=== PATIENT | female | born 1950 | race Caucasian/White ===

== ENCOUNTER 2017-12-10 14:18 | Inpatient (IN) | payer MEDICARE, MEDICAID ==
[~2017-12-10] VITALS: Ht 157.5 cm; Wt 90.9 kg
[~2017-12-10 14:18] MED LIST: ATEN-169 PO; DIPH25CA83 PO; HALO5TAB PO; HYDR-3965 PO; HYDR12.55 PO; LISI-600 PO; LORA2TAB96 PO; ONDA4TAB6 PO; PHEN100C4 PO; Ziprasidone IM; oxyCODONE PO
[2017-12-10 15:37] LABS: BASOPHILS % (AUTO) 0.7 % (0-1); EOSINOPHILS # (AUTO) 0.1 X10'3 (0-0.9); EOSINOPHILS % (AUTO) 1.2 % (0-6); HEMATOCRIT 29.9 % (35.0-45.0); HEMOGLOBIN 10.6 g/dl (12.0-16.0); LYMPHOCYTES # (AUTO) 1.1 X10'3 (1.1-4.8); LYMPHOCYTES % (AUTO) 25.4 % (21-51); MEAN CORPUSCULAR HEMOGLOBIN 37.4 PG (27.0-31.0); MEAN CORPUSCULAR HGB CONC 35.5 % (33.0-36.5); MEAN CORPUSCULAR VOLUME 105.5 FL (78-98); MEAN PLATELET VOLUME 6.9 FL (7.4-10.4); MONOCYTES # (AUTO) 0.4 X10'3 (0-0.9); MONOCYTES % (AUTO) 9.9 % (2-12); NEUTROPHILS # (AUTO) 2.8 X10'3 (1.8-7.7); NEUTROPHILS % (AUTO) 62.8 % (42-75); PLATELET COUNT 136 X10'3 (140-440); RED BLOOD COUNT 2.83 X10'6 (4.20-5.60); RED CELL DISTRIBUTION WIDTH 15.1 % (11.5-14.5); WHITE BLOOD COUNT 4.4 X10'3 (4.5-11.0)
[2017-12-10] MEDS ORDERED: HYDROcodone/acetaminophen 10/325mg tab PO ONE (15:45)
[2017-12-10 15:47] LABS: ALANINE AMINOTRANSFERASE 45 U/L (12-78); ALBUMIN 3.5 G/DL (3.4-5.0); ALBUMIN/GLOBULIN RATIO 1.1 (1.1-1.5); ALKALINE PHOSPHATASE 116 IU/L (46-116); ANION GAP 19 (8-16); ASPARTATE AMINO TRANSFERASE 111 U/L (10-37); BILIRUBIN,TOTAL 1.1 MG/DL (0.1-1.0); BLOOD UREA NITROGEN 38 MG/DL (7-18); BUN/CREATININE RATIO 32.2 (6.6-38.0); CALCIUM 8.3 MG/DL (8.5-10.1); CHLORIDE 89 MMOL/L (99-107); CREATININE 1.18 MG/DL (0.40-0.90); ETHANOL 0.183 GM/DL (0.0-0.010); GLUCOSE 88 MG/DL (70-104); SODIUM 128 MMOL/L (135-145); TOTAL CARBON DIOXIDE 19.8 MMOL/L (24-32); TOTAL PROTEIN 6.6 G/DL (6.4-8.2); eGFR 46 ML/MIN
[2017-12-10 16:02] LABS: ANISOCYTOSIS 1+; HYPOCHROMASIA 1+; PLATELET ESTIMATE DECREASED; POLYCHROMASIA 1+; STOMATOCYTES 1+
[2017-12-10] MEDS ORDERED: ondansetron/PF 4mg/2ml inj IV ONE ×2 (16:20→18:40)
[2017-12-10] MEDS ORDERED: normal saline 1000ml 1,000 ML IV ONE ×2 (16:20→16:25)
[2017-12-10] MEDS ORDERED: LORazepam 1 MG tablet PO ONE (16:35)
[2017-12-10] MEDS ORDERED: normal saline 1000ML IV soln IVB ONE (18:40)
[2017-12-10] MEDS ORDERED: HYDROmorphone 1 mg/ml syringe IV ONE (18:40)
[2017-12-10] MEDS ORDERED: HYDROmorphone inj. 0.5 MG/0.5 ML DISP.SYRIN ONE (18:44)
[2017-12-10] MEDS ORDERED: iohexol 300mg/ml 100ml inj. ONE (18:48)
[2017-12-10 20:09] LABS: URINE HCG NEGATIVE (NEG)
[2017-12-10 20:10] LABS: LIPASE 3719 U/L (73-393)
[2017-12-10 20:21] LABS: URINE AMPHETAMINE SCREEN NEGATIVE (Neg); URINE BARBITUATE SCREEN NEGATIVE (Neg); URINE BENZODIAZEPINES SCREEN NEGATIVE (Neg); URINE CANNABINOID SCREEN NEGATIVE (Neg); URINE COCAINE SCREEN NEGATIVE (Neg); URINE METHADONE SCREEN NEGATIVE (Neg); URINE OPIATE SCREEN POSITIVE (Neg); URINE PHENCYCLIDINE SCREEN NEGATIVE (Neg)
[2017-12-10 20:43] LABS: PHENYTOIN (DILANTIN) 6.7 UG/ML (10.0-20.0)
[2017-12-10] MEDS ORDERED: ASPI-1265 PO (20:59)
[2017-12-10] MEDS ORDERED: METF500T4 PO (20:59)
[2017-12-10] MEDS ORDERED: FLUO20CA39 PO (20:59)
[2017-12-10] MEDS ORDERED: phenytoin sod ER 100mg capsule PO ONE (21:00)
[2017-12-10] MEDS ORDERED: PANT20TA3 PO (21:02)
[2017-12-10 21:07] LABS: COLOR,URINE Yellow (Yellow); GLUCOSE, URINE Negative (Neg); KETONES,URINE Trace mg/dl (Neg); LEUKOCYTE ESTERASE ,URINE Moderate (Neg); NITRITES, URINE Negative (Neg); OCCULT BLOOD,URINE Negative (Neg); PROTEIN,URINE Negative (Neg)
[2017-12-10 21:18] LABS: CLARITY,URINE SLIGHTLY CLOUDY (Clear); UA COLLECTION TYPE NON-SPECIFIED
[2017-12-10 21:19] LABS: BACTERIA,URINE FEW /HPF (Neg); RBC,URINE 0-2 /HPF (0-2); SQUAMOUS EPITHELIAL CELL,UR FEW /LPF (FEW); WBC CLUMPS,URINE FEW /HPF (NEGATIVE); WBC,URINE 20-30 /HPF (0-4)
[2017-12-10] MEDS ORDERED: potassium Cl 40MEQ/NS 500ml 500 ML IV PRN ×2 (21:45)
[2017-12-10] MEDS ORDERED: acetaminophen 650mg rectal suppository RC PRN (21:45)
[2017-12-10] MEDS ORDERED: potassium Cl 20 mEq SR tablet PO PRN ×2 (21:45)
[2017-12-10] MEDS ORDERED: metoclopramide 5 mg/ml inj IV PRN (21:45)
[2017-12-10] MEDS ORDERED: glucagon, human recombinant 1mg kit SUBCUT PRN (21:50)
[2017-12-10] MEDS ORDERED: dextrose 50%-water 50ml dispensing syringe IV PRN ×2 (21:50)
[2017-12-10] MEDS ORDERED: insulin Lispro (HumaLOG) vial - multi-dose SQ SCH (21:50)
[2017-12-10] MEDS ORDERED: MESSAGE TO PHARMACY PO ONE (21:50)
[2017-12-10] MEDS ORDERED: dextrose ORAL solution 15 GM/59 ML bottle PO PRN ×2 (21:50)
[2017-12-10] MEDS ORDERED: LORazepam 2 mg/ml vial IV PRN (21:55)
[2017-12-10 22:07] LABS: INR 1.1 INR; PROTHROMBIN TIME 11.3 SECONDS (9.0-12.0)
[2017-12-10 22:14] LABS: CREATINE KINASE 58 U/L (26-192)
[2017-12-10 22:16] LABS: CHOL/HDL RATIO 2.1 (0.00-4.99); CHOLESTEROL 253 MG/DL (0-200); HDL CHOLESTEROL 122 MG/DL (35-60); LDL CHOLESTEROL 70 MG/DL (50-100); TRIGLYCERIDES 44 MG/DL (20-135)
[2017-12-10] MEDS: normal saline 1000ml 1,000 ML IV SCH (22:16)
[2017-12-10 22:21] LABS: HEMOGLOBIN A1C 4.5 % (4.5-6.2)
[2017-12-10] MEDS: pantoprazole 40 MG vial IV SCH (22:27)
[2017-12-10] MEDS: LORazepam 2 mg/ml vial IV PRN (22:52)
[2017-12-10] MEDS: HYDROmorphone inj. 0.5 MG/0.5 ML DISP.SYRIN IV PRN (22:53)
[2017-12-11] MEDS: HYDROmorphone inj. 0.5 MG/0.5 ML DISP.SYRIN IV PRN ×5 (04:00→21:35)
[2017-12-11] MEDS: LORazepam 2 mg/ml vial IV PRN ×6 (04:08→22:43)
[2017-12-11 06:54] LABS: BASOPHILS % (AUTO) 0.3 % (0-1); EOSINOPHILS # (AUTO) 0.1 X10'3 (0-0.9); EOSINOPHILS % (AUTO) 1.9 % (0-6); HEMATOCRIT 25.8 % (35.0-45.0); HEMOGLOBIN 9.2 g/dl (12.0-16.0); LYMPHOCYTES # (AUTO) 0.9 X10'3 (1.1-4.8); LYMPHOCYTES % (AUTO) 26.6 % (21-51); MEAN CORPUSCULAR HGB CONC 35.7 % (33.0-36.5); MEAN CORPUSCULAR VOLUME 106.5 FL (78-98); MEAN PLATELET VOLUME 6.5 FL (7.4-10.4); MONOCYTES # (AUTO) 0.3 X10'3 (0-0.9); MONOCYTES % (AUTO) 9.2 % (2-12); NEUTROPHILS # (AUTO) 2.2 X10'3 (1.8-7.7); PLATELET COUNT 102 X10'3 (140-440); RED BLOOD COUNT 2.42 X10'6 (4.20-5.60); RED CELL DISTRIBUTION WIDTH 15.4 % (11.5-14.5); WHITE BLOOD COUNT 3.5 X10'3 (4.5-11.0)
[2017-12-11 07:18] LABS: ALBUMIN 3.1 G/DL (3.4-5.0); ANION GAP 14 (8-16); BLOOD UREA NITROGEN 29 MG/DL (7-18); BUN/CREATININE RATIO 30.5 (6.6-38.0); CALCIUM 7.2 MG/DL (8.5-10.1); CHLORIDE 99 MMOL/L (99-107); CREATININE 0.95 MG/DL (0.40-0.90); GLUCOSE 76 MG/DL (70-104); MAGNESIUM 1.5 MG/DL (1.5-2.4); PHENYTOIN (DILANTIN) 6.6 UG/ML (10.0-20.0); PHOSPHORUS 2.8 MG/DL (2.3-4.5); POTASSIUM 4.9 MMOL/L (3.5-5.1); SODIUM 135 MMOL/L (135-145); TOTAL CARBON DIOXIDE 22.2 MMOL/L (24-32); eGFR 59 ML/MIN
[2017-12-11] MEDS: K and/or MAG REPLACEMENT MC SCH (08:00)
[2017-12-11] MEDS: ondansetron/PF 4mg/2ml inj IV PRN ×2 (08:20→16:16)
[2017-12-11] MEDS: pantoprazole 40 MG vial IV SCH ×2 (08:20→20:34)
[2017-12-11] MEDS: normal saline 1000ml 1,000 ML IV SCH ×2 (08:21→16:20)
[2017-12-11 11:22] VITALS: BP 109/52
[2017-12-11 19:00] VITALS: BP 97/44
[2017-12-11] MEDS: insulin glargine (Lantus) pen - multi-dose SQ SCH (21:00)
[2017-12-11] MEDS: phenytoin sod ER 100mg capsule PO SCH (21:34)
[2017-12-12] VITALS: BP 105/54
[2017-12-12] MEDS: LORazepam 2 mg/ml vial IV PRN ×6 (00:01→22:58)
[2017-12-12] MEDS: HYDROmorphone inj. 0.5 MG/0.5 ML DISP.SYRIN IV PRN ×5 (01:34→20:54)
[2017-12-12] MEDS: normal saline 1000ml 1,000 ML IV SCH ×3 (02:00→23:03)
[2017-12-12 06:02] LABS: BASOPHILS % (AUTO) 0.3 % (0-1); EOSINOPHILS # (AUTO) 0.1 X10'3 (0-0.9); EOSINOPHILS % (AUTO) 5.5 % (0-6); HEMATOCRIT 23.7 % (35.0-45.0); HEMOGLOBIN 8.4 g/dl (12.0-16.0); LYMPHOCYTES # (AUTO) 0.6 X10'3 (1.1-4.8); LYMPHOCYTES % (AUTO) 21.2 % (21-51); MEAN CORPUSCULAR HEMOGLOBIN 37.7 PG (27.0-31.0); MEAN CORPUSCULAR HGB CONC 35.2 % (33.0-36.5); MEAN CORPUSCULAR VOLUME 107.1 FL (78-98); MEAN PLATELET VOLUME 7.1 FL (7.4-10.4); MONOCYTES # (AUTO) 0.2 X10'3 (0-0.9); MONOCYTES % (AUTO) 8.5 % (2-12); NEUTROPHILS # (AUTO) 1.7 X10'3 (1.8-7.7); NEUTROPHILS % (AUTO) 64.5 % (42-75); PLATELET COUNT 80 X10'3 (140-440); RED BLOOD COUNT 2.22 X10'6 (4.20-5.60); RED CELL DISTRIBUTION WIDTH 15.5 % (11.5-14.5); WHITE BLOOD COUNT 2.7 X10'3 (4.5-11.0)
[2017-12-12 06:30] LABS: ALBUMIN 2.9 G/DL (3.4-5.0); ANION GAP 11 (8-16); BLOOD UREA NITROGEN 15 MG/DL (7-18); BUN/CREATININE RATIO 19.7 (6.6-38.0); CALCIUM 7.2 MG/DL (8.5-10.1); CHLORIDE 102 MMOL/L (99-107); CREATININE 0.76 MG/DL (0.40-0.90); GLUCOSE 89 MG/DL (70-104); MAGNESIUM 1.3 MG/DL (1.5-2.4); POTASSIUM 4.4 MMOL/L (3.5-5.1); SODIUM 137 MMOL/L (135-145); TOTAL CARBON DIOXIDE 23.6 MMOL/L (24-32); eGFR 77 ML/MIN
[2017-12-12 07:32] VITALS: BP 138/81
[2017-12-12] MEDS: K and/or MAG REPLACEMENT MC SCH (08:00)
[2017-12-12] MEDS: pantoprazole 40 MG vial IV SCH ×2 (08:28→20:13)
[2017-12-12] MEDS: phenytoin sod ER 100mg capsule PO SCH ×3 (08:28→20:53)
[2017-12-12 09:56] LABS: TOTAL CELLS COUNTED 100
[2017-12-12 09:57] LABS: ANISOCYTOSIS 1+
[2017-12-12] MEDS: thiamine inj. 100 MG, MVI, adult No.4 with vit. K 10 ML in dextrose 5% water 500ml 489 ML IV SCH ×3 (11:09)
[2017-12-12] MEDS: ondansetron/PF 4mg/2ml inj IV PRN (11:10)
[2017-12-12 11:31] VITALS: BP 124/64
[2017-12-12 12:13] LABS: PLATELET ESTIMATE DECREASED
[2017-12-12] MEDS ORDERED: magnesium 4gm in 100ml NS 100 ML IV PRN (17:05)
[2017-12-12] MEDS ORDERED: magnesium 2GM in 50ml NS 50 ML IV PRN (17:05)
[2017-12-12] MEDS: magnesium Cl slow-release 64mg tablet PO PRN (17:16)
[2017-12-12 18:30] VITALS: BP 139/77
[2017-12-12] MEDS: insulin glargine (Lantus) pen - multi-dose SQ SCH (20:55)
[2017-12-13] VITALS: BP 134/77
[2017-12-13] MEDS: HYDROmorphone inj. 0.5 MG/0.5 ML DISP.SYRIN IV PRN ×6 (01:15→23:40)
[2017-12-13] MEDS: LORazepam 2 mg/ml vial IV PRN ×8 (01:15→23:42)
[2017-12-13 06:01] LABS: ALBUMIN 2.8 G/DL (3.4-5.0); ANION GAP 10 (8-16); BLOOD UREA NITROGEN 7 MG/DL (7-18); BUN/CREATININE RATIO 10.3 (6.6-38.0); CALCIUM 7.7 MG/DL (8.5-10.1); CHLORIDE 102 MMOL/L (99-107); CREATININE 0.68 MG/DL (0.40-0.90); GLUCOSE 81 MG/DL (70-104); MAGNESIUM 1.3 MG/DL (1.5-2.4); PHOSPHORUS 1.7 MG/DL (2.3-4.5); SODIUM 137 MMOL/L (135-145); TOTAL CARBON DIOXIDE 24.8 MMOL/L (24-32); eGFR 87 ML/MIN
[2017-12-13 06:02] LABS: BASOPHILS % (AUTO) 0.3 % (0-1); EOSINOPHILS # (AUTO) 0.2 X10'3 (0-0.9); EOSINOPHILS % (AUTO) 7.1 % (0-6); HEMATOCRIT 24.2 % (35.0-45.0); HEMOGLOBIN 8.5 g/dl (12.0-16.0); LYMPHOCYTES # (AUTO) 0.7 X10'3 (1.1-4.8); LYMPHOCYTES % (AUTO) 25.6 % (21-51); MEAN CORPUSCULAR HEMOGLOBIN 37.6 PG (27.0-31.0); MEAN CORPUSCULAR VOLUME 107.3 FL (78-98); MEAN PLATELET VOLUME 6.6 FL (7.4-10.4); MONOCYTES # (AUTO) 0.2 X10'3 (0-0.9); MONOCYTES % (AUTO) 6.9 % (2-12); NEUTROPHILS # (AUTO) 1.7 X10'3 (1.8-7.7); NEUTROPHILS % (AUTO) 60.1 % (42-75); PLATELET COUNT 99 X10'3 (140-440); RED BLOOD COUNT 2.26 X10'6 (4.20-5.60); RED CELL DISTRIBUTION WIDTH 14.9 % (11.5-14.5); WHITE BLOOD COUNT 2.8 X10'3 (4.5-11.0)
[2017-12-13 07:00] VITALS: BP 126/73
[2017-12-13 07:51] LABS: EOSINOPHILS % (MANUAL) 8 % (0-6); LYMPHOCYTES % (MANUAL) 20 % (21-51); MONOCYTES % (MANUAL) 4 % (2-12); NEUTROPHILS % (MANUAL) 68 % (42-75); PLATELET ESTIMATE DECREASED; TOTAL CELLS COUNTED 100
[2017-12-13 07:52] LABS: STOMATOCYTES 1+
[2017-12-13] MEDS: K and/or MAG REPLACEMENT MC SCH (08:00)
[2017-12-13] MEDS: pantoprazole 40 MG vial IV SCH ×2 (08:50→21:14)
[2017-12-13] MEDS: FLUoxetine 20mg capsule PO SCH (08:51)
[2017-12-13] MEDS: ondansetron/PF 4mg/2ml inj IV PRN (08:51)
[2017-12-13] MEDS: phenytoin sod ER 100mg capsule PO SCH ×3 (08:51→21:14)
[2017-12-13] MEDS: thiamine inj. 100 MG, MVI, adult No.4 with vit. K 10 ML in dextrose 5% water 500ml 489 ML IV SCH ×3 (08:58)
[2017-12-13] MEDS: normal saline 1000ml 1,000 ML IV SCH ×2 (09:43→19:55)
[2017-12-13] MEDS ORDERED: LORazepam 2 mg/ml vial IV ONE (10:05)
[2017-12-13] MEDS ORDERED: LORazepam 2 mg/ml vial IV PRN (10:55)
[2017-12-13 11:12] VITALS: BP 136/71
[2017-12-13 18:40] VITALS: BP 147/80
[2017-12-13] MEDS: insulin glargine (Lantus) pen - multi-dose SQ SCH (21:00)
[2017-12-14] VITALS: BP 141/84
[2017-12-14] MEDS: LORazepam 2 mg/ml vial IV PRN ×4 (01:57→12:41)
[2017-12-14] MEDS: HYDROmorphone inj. 0.5 MG/0.5 ML DISP.SYRIN IV PRN ×3 (04:08→13:29)
[2017-12-14] MEDS: normal saline 1000ml 1,000 ML IV SCH ×2 (04:13→17:56)
[2017-12-14 05:56] LABS: BASOPHILS % (AUTO) 0.4 % (0-1); EOSINOPHILS # (AUTO) 0.2 X10'3 (0-0.9); EOSINOPHILS % (AUTO) 7.4 % (0-6); HEMATOCRIT 24.1 % (35.0-45.0); HEMOGLOBIN 8.6 g/dl (12.0-16.0); LYMPHOCYTES # (AUTO) 0.6 X10'3 (1.1-4.8); LYMPHOCYTES % (AUTO) 17.7 % (21-51); MEAN CORPUSCULAR HEMOGLOBIN 37.8 PG (27.0-31.0); MEAN CORPUSCULAR HGB CONC 35.9 % (33.0-36.5); MEAN CORPUSCULAR VOLUME 105.3 FL (78-98); MONOCYTES # (AUTO) 0.2 X10'3 (0-0.9); MONOCYTES % (AUTO) 7.8 % (2-12); NEUTROPHILS # (AUTO) 2.1 X10'3 (1.8-7.7); NEUTROPHILS % (AUTO) 66.7 % (42-75); PLATELET COUNT 112 X10'3 (140-440); RED BLOOD COUNT 2.29 X10'6 (4.20-5.60); RED CELL DISTRIBUTION WIDTH 14.8 % (11.5-14.5); WHITE BLOOD COUNT 3.2 X10'3 (4.5-11.0)
[2017-12-14 06:27] LABS: ALBUMIN 2.9 G/DL (3.4-5.0); ANION GAP 13 (8-16); BLOOD UREA NITROGEN 5 MG/DL (7-18); BUN/CREATININE RATIO 8.6 (6.6-38.0); CALCIUM 8.2 MG/DL (8.5-10.1); CHLORIDE 100 MMOL/L (99-107); CREATININE 0.58 MG/DL (0.40-0.90); GLUCOSE 83 MG/DL (70-104); MAGNESIUM 2.1 MG/DL (1.5-2.4); PHENYTOIN (DILANTIN) 6.1 UG/ML (10.0-20.0); PHOSPHORUS 2.1 MG/DL (2.3-4.5); POTASSIUM 4.1 MMOL/L (3.5-5.1); SODIUM 136 MMOL/L (135-145); TOTAL CARBON DIOXIDE 22.6 MMOL/L (24-32); eGFR > 90 ML/MIN
[2017-12-14 06:37] LABS: LIPASE 2567 U/L (73-393)
[2017-12-14 07:00] VITALS: BP 135/73
[2017-12-14] MEDS: K and/or MAG REPLACEMENT MC SCH (07:16)
[2017-12-14] MEDS: FLUoxetine 20mg capsule PO SCH (07:25)
[2017-12-14] MEDS: pantoprazole 40 MG vial IV SCH ×2 (07:25→21:42)
[2017-12-14] MEDS: phenytoin sod ER 100mg capsule PO SCH ×3 (07:25→21:42)
[2017-12-14] MEDS: thiamine inj. 100 MG, MVI, adult No.4 with vit. K 10 ML in dextrose 5% water 500ml 489 ML IV SCH ×3 (08:55)
[2017-12-14 11:00] VITALS: BP 146/74
[2017-12-14] MEDS ORDERED: morphine 4 MG/ML inj SYRINge IV PRN (14:20)
[2017-12-14] MEDS: LORazepam 1 MG tablet PO PRN ×2 (16:52→22:03)
[2017-12-14] MEDS: oxyCODONE/APAP 5-325mg tablet PO PRN ×2 (17:55→22:03)
[2017-12-14 20:00] VITALS: BP 138/71
[2017-12-14] MEDS: insulin glargine (Lantus) pen - multi-dose SQ SCH (21:00)
[2017-12-15] VITALS: BP 138/70
[2017-12-15] MEDS: normal saline 1000ml 1,000 ML IV SCH ×3 (01:43→15:11)
[2017-12-15] MEDS: oxyCODONE/APAP 5-325mg tablet PO PRN ×4 (02:23→15:51)
[2017-12-15] MEDS: LORazepam 1 MG tablet PO PRN ×5 (02:24→21:34)
[2017-12-15 05:51] LABS: BASOPHILS % (AUTO) 0.4 % (0-1); EOSINOPHILS # (AUTO) 0.2 X10'3 (0-0.9); EOSINOPHILS % (AUTO) 8.9 % (0-6); HEMOGLOBIN 8.8 g/dl (12.0-16.0); LYMPHOCYTES # (AUTO) 0.6 X10'3 (1.1-4.8); LYMPHOCYTES % (AUTO) 21.5 % (21-51); MEAN CORPUSCULAR HEMOGLOBIN 37.4 PG (27.0-31.0); MEAN CORPUSCULAR HGB CONC 35.3 % (33.0-36.5); MEAN CORPUSCULAR VOLUME 105.8 FL (78-98); MEAN PLATELET VOLUME 6.2 FL (7.4-10.4); MONOCYTES # (AUTO) 0.4 X10'3 (0-0.9); MONOCYTES % (AUTO) 14.6 % (2-12); NEUTROPHILS # (AUTO) 1.4 X10'3 (1.8-7.7); NEUTROPHILS % (AUTO) 54.6 % (42-75); PLATELET COUNT 161 X10'3 (140-440); RED BLOOD COUNT 2.36 X10'6 (4.20-5.60); RED CELL DISTRIBUTION WIDTH 15.3 % (11.5-14.5); WHITE BLOOD COUNT 2.6 X10'3 (4.5-11.0)
[2017-12-15 06:28] LABS: ALBUMIN 2.8 G/DL (3.4-5.0); ANION GAP 8 (8-16); BLOOD UREA NITROGEN 3 MG/DL (7-18); BUN/CREATININE RATIO 3.8 (6.6-38.0); CALCIUM 8.7 MG/DL (8.5-10.1); CHLORIDE 104 MMOL/L (99-107); CREATININE 0.78 MG/DL (0.40-0.90); GLUCOSE 110 MG/DL (70-104); MAGNESIUM 1.4 MG/DL (1.5-2.4); PHOSPHORUS 1.9 MG/DL (2.3-4.5); POTASSIUM 3.7 MMOL/L (3.5-5.1); SODIUM 140 MMOL/L (135-145); TOTAL CARBON DIOXIDE 27.6 MMOL/L (24-32); eGFR 74 ML/MIN
[2017-12-15 07:02] VITALS: BP 164/83
[2017-12-15] MEDS: pantoprazole 40 MG vial IV SCH ×2 (07:29→19:30)
[2017-12-15] MEDS: FLUoxetine 20mg capsule PO SCH (07:29)
[2017-12-15] MEDS: phenytoin sod ER 100mg capsule PO SCH ×3 (07:29→21:30)
[2017-12-15] MEDS: thiamine inj. 100 MG, MVI, adult No.4 with vit. K 10 ML in dextrose 5% water 500ml 489 ML IV SCH ×3 (07:30)
[2017-12-15 07:32] LABS: TOTAL CELLS COUNTED 100
[2017-12-15 07:33] LABS: BANDS% (MANUAL) 3 % (0-10); BASOPHILS % (MANUAL) 1 % (0-1); EOSINOPHILS % (MANUAL) 8 % (0-6); LYMPHOCYTES % (MANUAL) 20 % (21-51); METAMYLEOCYTES% (MANUAL) 1 % (0-0); MONOCYTES % (MANUAL) 8 % (2-12); NEUTROPHILS % (MANUAL) 59 % (42-75); PLATELET ESTIMATE NORMAL
[2017-12-15] MEDS: K and/or MAG REPLACEMENT MC SCH (08:00)
[2017-12-15] MEDS: magnesium Cl slow-release 64mg tablet PO PRN ×2 (09:48→21:41)
[2017-12-15 11:09] VITALS: BP 145/83
[2017-12-15] MEDS: ondansetron/PF 4mg/2ml inj IV PRN (11:48)
[2017-12-15] MEDS: morphine 4 MG/ML inj SYRINge IV PRN ×2 (13:06→19:31)
[2017-12-15 13:52] LABS: LIPASE 1756 U/L (73-393)
[2017-12-15 20:00] VITALS: BP 133/75
[2017-12-15] MEDS: insulin glargine (Lantus) pen - multi-dose SQ SCH (21:00)
[2017-12-15] MEDS ORDERED: magnesium 2GM in 50ml NS 50 ML IV PRN (21:30)
[2017-12-15] MEDS ORDERED: potassium Cl 20 mEq SR tablet PO PRN ×2 (21:30)
[2017-12-15] MEDS ORDERED: magnesium 4gm in 100ml NS 100 ML IV PRN (21:30)
[2017-12-15] MEDS ORDERED: potassium Cl 40MEQ/NS 500ml 500 ML IV PRN ×2 (21:30)
[2017-12-16] VITALS: BP 133/73
[2017-12-16] MEDS: morphine 4 MG/ML inj SYRINge IV PRN ×3 (00:34→19:19)
[2017-12-16] MEDS: oxyCODONE/APAP 5-325mg tablet PO PRN ×5 (01:33→22:08)
[2017-12-16] MEDS: LORazepam 1 MG tablet PO PRN ×5 (01:33→22:07)
[2017-12-16 06:13] LABS: MAGNESIUM 1.2 MG/DL (1.5-2.4); POTASSIUM 3.9 MMOL/L (3.5-5.1)
[2017-12-16 07:30] VITALS: BP 154/88
[2017-12-16] MEDS: normal saline 1000ml 1,000 ML IV SCH ×3 (07:43→19:14)
[2017-12-16] MEDS: thiamine inj. 100 MG, MVI, adult No.4 with vit. K 10 ML in dextrose 5% water 500ml 489 ML IV SCH ×3 (07:45)
[2017-12-16] MEDS: magnesium Cl slow-release 64mg tablet PO PRN ×2 (07:45→22:07)
[2017-12-16] MEDS: FLUoxetine 20mg capsule PO SCH (07:45)
[2017-12-16] MEDS: phenytoin sod ER 100mg capsule PO SCH ×3 (07:45→21:29)
[2017-12-16] MEDS: pantoprazole 40 MG vial IV SCH ×2 (07:45→20:32)
[2017-12-16] MEDS: K and/or MAG REPLACEMENT MC SCH (08:00)
[2017-12-16] MEDS: ondansetron/PF 4mg/2ml inj IV PRN (08:04)
[2017-12-16 11:56] VITALS: BP 146/84
[2017-12-16 12:52] LABS: BASOPHILS % (AUTO) 0.3 % (0-1); EOSINOPHILS # (AUTO) 0.2 X10'3 (0-0.9); EOSINOPHILS % (AUTO) 7.3 % (0-6); HEMATOCRIT 27.7 % (35.0-45.0); HEMOGLOBIN 9.5 g/dl (12.0-16.0); LYMPHOCYTES # (AUTO) 0.6 X10'3 (1.1-4.8); LYMPHOCYTES % (AUTO) 18.8 % (21-51); MEAN CORPUSCULAR HEMOGLOBIN 37.2 PG (27.0-31.0); MEAN CORPUSCULAR HGB CONC 34.2 % (33.0-36.5); MEAN CORPUSCULAR VOLUME 108.8 FL (78-98); MEAN PLATELET VOLUME 5.9 FL (7.4-10.4); MONOCYTES # (AUTO) 0.5 X10'3 (0-0.9); MONOCYTES % (AUTO) 15.1 % (2-12); NEUTROPHILS # (AUTO) 1.9 X10'3 (1.8-7.7); NEUTROPHILS % (AUTO) 58.5 % (42-75); PLATELET COUNT 232 X10'3 (140-440); RED BLOOD COUNT 2.55 X10'6 (4.20-5.60); RED CELL DISTRIBUTION WIDTH 15.8 % (11.5-14.5); WHITE BLOOD COUNT 3.2 X10'3 (4.5-11.0)
[2017-12-16 13:05] LABS: ALANINE AMINOTRANSFERASE 28 U/L (12-78); ALBUMIN 3.3 G/DL (3.4-5.0); ALKALINE PHOSPHATASE 98 IU/L (46-116); ANION GAP 8 (8-16); ASPARTATE AMINO TRANSFERASE 26 U/L (10-37); BILIRUBIN,TOTAL 0.5 MG/DL (0.1-1.0); BLOOD UREA NITROGEN 3 MG/DL (7-18); BUN/CREATININE RATIO 3.2 (6.6-38.0); CALCIUM 9.1 MG/DL (8.5-10.1); CHLORIDE 102 MMOL/L (99-107); CREATININE 0.94 MG/DL (0.40-0.90); GLUCOSE 105 MG/DL (70-104); LIPASE 796 U/L (73-393); POTASSIUM 3.6 MMOL/L (3.5-5.1); SODIUM 139 MMOL/L (135-145); TOTAL CARBON DIOXIDE 29.1 MMOL/L (24-32); TOTAL PROTEIN 6.5 G/DL (6.4-8.2); eGFR 60 ML/MIN
[2017-12-16 19:00] VITALS: BP 157/83
[2017-12-16] MEDS ORDERED: famotidine 20mg tablet PO ONE ×2 (21:00→21:20)
[2017-12-16] MEDS: insulin glargine (Lantus) pen - multi-dose SQ SCH (21:00)
[2017-12-16] MEDS ORDERED: methylPREDNISolone sod succ 125mg/2ml vial IV ONE (21:00)
[2017-12-16] MEDS: diphenhydrAMINE 50 mg/ml inj IV PRN (21:29)
[2017-12-17] VITALS: BP 159/86
[2017-12-17] MEDS: LORazepam 1 MG tablet PO PRN ×5 (03:13→20:11)
[2017-12-17] MEDS: oxyCODONE/APAP 5-325mg tablet PO PRN ×5 (03:13→20:11)
[2017-12-17 05:19] LABS: BASOPHILS % (AUTO) 0.7 % (0-1); EOSINOPHILS % (AUTO) 1.2 % (0-6); HEMATOCRIT 24.9 % (35.0-45.0); HEMOGLOBIN 8.7 g/dl (12.0-16.0); LYMPHOCYTES # (AUTO) 0.3 X10'3 (1.1-4.8); LYMPHOCYTES % (AUTO) 15.7 % (21-51); MEAN CORPUSCULAR HEMOGLOBIN 37.2 PG (27.0-31.0); MEAN CORPUSCULAR HGB CONC 34.9 % (33.0-36.5); MEAN CORPUSCULAR VOLUME 106.6 FL (78-98); MEAN PLATELET VOLUME 6.2 FL (7.4-10.4); MONOCYTES # (AUTO) 0.1 X10'3 (0-0.9); MONOCYTES % (AUTO) 3.9 % (2-12); NEUTROPHILS # (AUTO) 1.4 X10'3 (1.8-7.7); NEUTROPHILS % (AUTO) 78.5 % (42-75); PLATELET COUNT 227 X10'3 (140-440); RED BLOOD COUNT 2.34 X10'6 (4.20-5.60); RED CELL DISTRIBUTION WIDTH 15.1 % (11.5-14.5); WHITE BLOOD COUNT 1.7 X10'3 (4.5-11.0)
[2017-12-17 05:48] LABS: ALANINE AMINOTRANSFERASE 23 U/L (12-78); ALBUMIN 2.9 G/DL (3.4-5.0); ALKALINE PHOSPHATASE 89 IU/L (46-116); ANION GAP 10 (8-16); ASPARTATE AMINO TRANSFERASE 22 U/L (10-37); BILIRUBIN,TOTAL 0.4 MG/DL (0.1-1.0); BLOOD UREA NITROGEN 2 MG/DL (7-18); BUN/CREATININE RATIO 2.7 (6.6-38.0); CALCIUM 8.8 MG/DL (8.5-10.1); CHLORIDE 105 MMOL/L (99-107); CREATININE 0.75 MG/DL (0.40-0.90); GLUCOSE 148 MG/DL (70-104); LIPASE 386 U/L (73-393); MAGNESIUM 1.3 MG/DL (1.5-2.4); POTASSIUM 3.8 MMOL/L (3.5-5.1); SODIUM 141 MMOL/L (135-145); TOTAL CARBON DIOXIDE 25.8 MMOL/L (24-32); TOTAL PROTEIN 5.8 G/DL (6.4-8.2); eGFR 78 ML/MIN
[2017-12-17] MEDS: normal saline 1000ml 1,000 ML IV SCH ×2 (06:37→23:01)
[2017-12-17] MEDS: K and/or MAG REPLACEMENT MC SCH ×2 (07:15→07:16)
[2017-12-17 07:28] VITALS: BP 152/89
[2017-12-17] MEDS: FLUoxetine 20mg capsule PO SCH (07:34)
[2017-12-17] MEDS: pantoprazole 40 MG vial IV SCH ×2 (07:34→20:10)
[2017-12-17] MEDS: phenytoin sod ER 100mg capsule PO SCH ×3 (07:35→20:42)
[2017-12-17] MEDS: thiamine inj. 100 MG, MVI, adult No.4 with vit. K 10 ML in dextrose 5% water 500ml 489 ML IV SCH ×3 (07:35)
[2017-12-17 09:06] LABS: PLATELET ESTIMATE NORMAL; TOTAL CELLS COUNTED 100
[2017-12-17 09:07] LABS: ANISOCYTOSIS 1+; POLYCHROMASIA 1+; SMUDGE CELLS FEW; TARGET CELLS FEW
[2017-12-17] MEDS: magnesium Cl slow-release 64mg tablet PO PRN (11:25)
[2017-12-17 11:40] VITALS: BP 165/85
[2017-12-17] MEDS ORDERED: lisinopril 20mg tablet PO SCH (11:40)
[2017-12-17] MEDS ORDERED: atenolol 50mg tablet PO SCH (11:55)
[2017-12-17] MEDS: aspirin 81mg tab.chew PO SCH (12:11)
[2017-12-17 16:14] VITALS: BP 144/75
[2017-12-17] MEDS: atenolol 50mg tablet PO SCH (16:17)
[2017-12-17 19:00] VITALS: BP 150/73
[2017-12-17] MEDS: insulin glargine (Lantus) pen - multi-dose SQ SCH (21:00)
[2017-12-18] VITALS: BP 138/65
[2017-12-18] MEDS: LORazepam 1 MG tablet PO PRN ×6 (00:16→21:36)
[2017-12-18] MEDS: oxyCODONE/APAP 5-325mg tablet PO PRN ×6 (00:19→21:37)
[2017-12-18 05:31] LABS: BASOPHILS % (AUTO) 0.9 % (0-1); EOSINOPHILS # (AUTO) 0.2 X10'3 (0-0.9); EOSINOPHILS % (AUTO) 6.6 % (0-6); HEMOGLOBIN 8.5 g/dl (12.0-16.0); LYMPHOCYTES # (AUTO) 1.2 X10'3 (1.1-4.8); LYMPHOCYTES % (AUTO) 34.9 % (21-51); MEAN CORPUSCULAR HEMOGLOBIN 37.6 PG (27.0-31.0); MEAN CORPUSCULAR HGB CONC 35.3 % (33.0-36.5); MEAN CORPUSCULAR VOLUME 106.7 FL (78-98); MEAN PLATELET VOLUME 6.1 FL (7.4-10.4); MONOCYTES # (AUTO) 0.5 X10'3 (0-0.9); MONOCYTES % (AUTO) 15.4 % (2-12); NEUTROPHILS # (AUTO) 1.4 X10'3 (1.8-7.7); NEUTROPHILS % (AUTO) 42.2 % (42-75); PLATELET COUNT 251 X10'3 (140-440); RED BLOOD COUNT 2.25 X10'6 (4.20-5.60); RED CELL DISTRIBUTION WIDTH 15.7 % (11.5-14.5); WHITE BLOOD COUNT 3.4 X10'3 (4.5-11.0)
[2017-12-18 06:16] LABS: ALANINE AMINOTRANSFERASE 22 U/L (12-78); ALBUMIN 2.8 G/DL (3.4-5.0); ALKALINE PHOSPHATASE 80 IU/L (46-116); ANION GAP 10 (8-16); ASPARTATE AMINO TRANSFERASE 23 U/L (10-37); BILIRUBIN,TOTAL 0.4 MG/DL (0.1-1.0); BLOOD UREA NITROGEN 3 MG/DL (7-18); CALCIUM 8.7 MG/DL (8.5-10.1); CHLORIDE 108 MMOL/L (99-107); CREATININE 0.75 MG/DL (0.40-0.90); GLUCOSE 99 MG/DL (70-104); LIPASE 385 U/L (73-393); MAGNESIUM 1.3 MG/DL (1.5-2.4); POTASSIUM 3.5 MMOL/L (3.5-5.1); SODIUM 143 MMOL/L (135-145); TOTAL CARBON DIOXIDE 24.8 MMOL/L (24-32); TOTAL PROTEIN 5.5 G/DL (6.4-8.2); eGFR 78 ML/MIN
[2017-12-18] MEDS: atenolol 50mg tablet PO SCH ×2 (06:44→13:48)
[2017-12-18] MEDS: aspirin 81mg tab.chew PO SCH (06:44)
[2017-12-18] MEDS: pantoprazole 40 MG vial IV SCH ×2 (06:44→19:30)
[2017-12-18] MEDS: phenytoin sod ER 100mg capsule PO SCH ×3 (06:50→20:35)
[2017-12-18] MEDS: K and/or MAG REPLACEMENT MC SCH (06:55)
[2017-12-18 07:05] VITALS: BP 157/94
[2017-12-18] MEDS: magnesium Cl slow-release 64mg tablet PO PRN (08:56)
[2017-12-18] MEDS: thiamine inj. 100 MG, MVI, adult No.4 with vit. K 10 ML in dextrose 5% water 500ml 489 ML IV SCH ×3 (09:22)
[2017-12-18] MEDS: normal saline 1000ml 1,000 ML IV SCH ×2 (09:26→19:43)
[2017-12-18 12:00] VITALS: BP 182/91
[2017-12-18] MEDS: lisinopril 20mg tablet PO SCH (12:09)
[2017-12-18 19:00] VITALS: BP 151/84
[2017-12-18] MEDS: diphenhydrAMINE 50 mg/ml inj IV PRN (19:30)
[2017-12-18] MEDS: insulin glargine (Lantus) pen - multi-dose SQ SCH (21:00)
[2017-12-19] VITALS: BP 130/69
[2017-12-19] MEDS: LORazepam 1 MG tablet PO PRN ×5 (02:07→20:55)
[2017-12-19] MEDS: oxyCODONE/APAP 5-325mg tablet PO PRN ×5 (02:08→20:55)
[2017-12-19] MEDS: normal saline 1000ml 1,000 ML IV SCH ×2 (04:14→20:10)
[2017-12-19 05:59] LABS: BASOPHILS % (AUTO) 0.9 % (0-1); EOSINOPHILS # (AUTO) 0.2 X10'3 (0-0.9); EOSINOPHILS % (AUTO) 5.3 % (0-6); HEMATOCRIT 23.9 % (35.0-45.0); HEMOGLOBIN 8.2 g/dl (12.0-16.0); LYMPHOCYTES # (AUTO) 1.1 X10'3 (1.1-4.8); LYMPHOCYTES % (AUTO) 31.9 % (21-51); MEAN CORPUSCULAR HEMOGLOBIN 36.9 PG (27.0-31.0); MEAN CORPUSCULAR HGB CONC 34.1 % (33.0-36.5); MEAN CORPUSCULAR VOLUME 108.1 FL (78-98); MEAN PLATELET VOLUME 6.2 FL (7.4-10.4); MONOCYTES # (AUTO) 0.7 X10'3 (0-0.9); MONOCYTES % (AUTO) 18.7 % (2-12); NEUTROPHILS # (AUTO) 1.5 X10'3 (1.8-7.7); NEUTROPHILS % (AUTO) 43.2 % (42-75); PLATELET COUNT 273 X10'3 (140-440); RED BLOOD COUNT 2.21 X10'6 (4.20-5.60); RED CELL DISTRIBUTION WIDTH 15.5 % (11.5-14.5); WHITE BLOOD COUNT 3.5 X10'3 (4.5-11.0)
[2017-12-19] MEDS: aspirin 81mg tab.chew PO SCH (06:50)
[2017-12-19] MEDS: phenytoin sod ER 100mg capsule PO SCH ×3 (06:51→20:18)
[2017-12-19] MEDS: thiamine inj. 100 MG, MVI, adult No.4 with vit. K 10 ML in dextrose 5% water 500ml 489 ML IV SCH ×3 (06:51)
[2017-12-19] MEDS: pantoprazole 40 MG vial IV SCH ×2 (06:51→20:14)
[2017-12-19] MEDS: lisinopril 20mg tablet PO SCH (06:51)
[2017-12-19] MEDS: atenolol 50mg tablet PO SCH ×2 (06:51→07:55)
[2017-12-19] MEDS: K and/or MAG REPLACEMENT MC SCH (06:52)
[2017-12-19 06:54] LABS: ALANINE AMINOTRANSFERASE 20 U/L (12-78); ALBUMIN 2.8 G/DL (3.4-5.0); ALBUMIN/GLOBULIN RATIO 1.1 (1.1-1.5); ALKALINE PHOSPHATASE 75 IU/L (46-116); ANION GAP 10 (8-16); ASPARTATE AMINO TRANSFERASE 18 U/L (10-37); BILIRUBIN,TOTAL 0.3 MG/DL (0.1-1.0); BLOOD UREA NITROGEN 3 MG/DL (7-18); BUN/CREATININE RATIO 3.6 (6.6-38.0); CALCIUM 8.6 MG/DL (8.5-10.1); CHLORIDE 107 MMOL/L (99-107); CREATININE 0.84 MG/DL (0.40-0.90); GLUCOSE 105 MG/DL (70-104); LIPASE 270 U/L (73-393); MAGNESIUM 1.2 MG/DL (1.5-2.4); POTASSIUM 3.5 MMOL/L (3.5-5.1); SODIUM 142 MMOL/L (135-145); TOTAL CARBON DIOXIDE 24.8 MMOL/L (24-32); TOTAL PROTEIN 5.4 G/DL (6.4-8.2); eGFR 68 ML/MIN
[2017-12-19 07:20] VITALS: BP 165/87
[2017-12-19 08:11] LABS: PLATELET ESTIMATE NORMAL; TOTAL CELLS COUNTED 100
[2017-12-19 08:13] LABS: ANISOCYTOSIS 1+
[2017-12-19] MEDS ORDERED: famotidine 20mg tablet PO ONE (10:25)
[2017-12-19] MEDS ORDERED: sucralfate 1gm/10ml UD suspension PO ONE (10:25)
[2017-12-19 11:43] VITALS: BP 156/86
[2017-12-19 20:00] VITALS: BP 171/94
[2017-12-19] MEDS: diphenhydrAMINE 50 mg/ml inj IV PRN (20:06)
[2017-12-19] MEDS ORDERED: atenolol 50mg tablet PO ONE (20:35)
[2017-12-19] MEDS: insulin glargine (Lantus) pen - multi-dose SQ SCH (20:57)
[2017-12-20] VITALS: BP 142/78
[2017-12-20] MEDS: LORazepam 1 MG tablet PO PRN ×5 (01:08→21:09)
[2017-12-20] MEDS: oxyCODONE/APAP 5-325mg tablet PO PRN ×5 (01:09→21:09)
[2017-12-20] MEDS: normal saline 1000ml 1,000 ML IV SCH ×2 (05:04→11:43)
[2017-12-20 05:52] LABS: BASOPHILS % (AUTO) 1.5 % (0-1); EOSINOPHILS # (AUTO) 0.2 X10'3 (0-0.9); EOSINOPHILS % (AUTO) 5.7 % (0-6); HEMATOCRIT 23.3 % (35.0-45.0); LYMPHOCYTES % (AUTO) 31.1 % (21-51); MEAN CORPUSCULAR HEMOGLOBIN 36.7 PG (27.0-31.0); MEAN CORPUSCULAR HGB CONC 34.2 % (33.0-36.5); MEAN CORPUSCULAR VOLUME 107.2 FL (78-98); MEAN PLATELET VOLUME 6.7 FL (7.4-10.4); MONOCYTES # (AUTO) 0.5 X10'3 (0-0.9); NEUTROPHILS # (AUTO) 1.4 X10'3 (1.8-7.7); NEUTROPHILS % (AUTO) 45.7 % (42-75); PLATELET COUNT 279 X10'3 (140-440); RED BLOOD COUNT 2.17 X10'6 (4.20-5.60); RED CELL DISTRIBUTION WIDTH 15.9 % (11.5-14.5); WHITE BLOOD COUNT 3.1 X10'3 (4.5-11.0)
[2017-12-20 06:23] LABS: ALANINE AMINOTRANSFERASE 27 U/L (12-78); ALBUMIN 2.6 G/DL (3.4-5.0); ALKALINE PHOSPHATASE 66 IU/L (46-116); ANION GAP 7 (8-16); ASPARTATE AMINO TRANSFERASE 31 U/L (10-37); BILIRUBIN,TOTAL 0.4 MG/DL (0.1-1.0); BLOOD UREA NITROGEN 5 MG/DL (7-18); BUN/CREATININE RATIO 5.2 (6.6-38.0); CALCIUM 8.5 MG/DL (8.5-10.1); CHLORIDE 110 MMOL/L (99-107); CREATININE 0.96 MG/DL (0.40-0.90); GLUCOSE 99 MG/DL (70-104); LIPASE 202 U/L (73-393); MAGNESIUM 1.1 MG/DL (1.5-2.4); POTASSIUM 3.6 MMOL/L (3.5-5.1); SODIUM 145 MMOL/L (135-145); TOTAL CARBON DIOXIDE 27.8 MMOL/L (24-32); TOTAL PROTEIN 5.3 G/DL (6.4-8.2); eGFR 58 ML/MIN
[2017-12-20] MEDS: aspirin 81mg tab.chew PO SCH (06:39)
[2017-12-20] MEDS: atenolol 50mg tablet PO SCH ×2 (06:39→07:08)
[2017-12-20 07:00] VITALS: BP 143/72
[2017-12-20] MEDS: pantoprazole 40 MG vial IV SCH ×2 (07:04→21:11)
[2017-12-20] MEDS: lisinopril 20mg tablet PO SCH (07:08)
[2017-12-20] MEDS: phenytoin sod ER 100mg capsule PO SCH ×3 (07:09→21:10)
[2017-12-20] MEDS: K and/or MAG REPLACEMENT MC SCH (07:15)
[2017-12-20] MEDS: thiamine inj. 100 MG, MVI, adult No.4 with vit. K 10 ML in dextrose 5% water 500ml 489 ML IV SCH ×3 (08:54)
[2017-12-20] MEDS ORDERED: NORMAL SALINE IV ONE (09:00)
[2017-12-20] MEDS ORDERED: SINCALIDE IV ONE (09:00)
[2017-12-20 09:59] LABS: INR 1.1 INR
[2017-12-20] MEDS ORDERED: magnesium 2GM in 50ml NS 50 ML IV PRN (10:00)
[2017-12-20] MEDS ORDERED: magnesium 4gm in 100ml NS 100 ML IV PRN (10:00)
[2017-12-20 11:42] VITALS: BP 159/84
[2017-12-20 11:48] VITALS: BP 159/84
[2017-12-20 11:50] VITALS: BP 149/77
[2017-12-20 20:00] VITALS: BP 126/67
[2017-12-20] MEDS: insulin glargine (Lantus) pen - multi-dose SQ SCH (21:00)
[2017-12-20] MEDS: diphenhydrAMINE 50 mg/ml inj IV PRN (21:18)
[2017-12-21] VITALS (28 sets, daily range): BP systolic 104–166; BP diastolic 60–109
[2017-12-21] MEDS: LORazepam 1 MG tablet PO PRN ×5 (01:39→20:30)
[2017-12-21] MEDS: oxyCODONE/APAP 5-325mg tablet PO PRN ×5 (01:39→20:30)
[2017-12-21] MEDS: normal saline 1000ml 1,000 ML IV SCH ×3 (01:40→16:07)
[2017-12-21 04:59] LABS: BASOPHILS % (AUTO) 1.4 % (0-1); EOSINOPHILS # (AUTO) 0.2 X10'3 (0-0.9); HEMATOCRIT 24.7 % (35.0-45.0); HEMOGLOBIN 8.5 g/dl (12.0-16.0); LYMPHOCYTES # (AUTO) 0.9 X10'3 (1.1-4.8); MEAN CORPUSCULAR HEMOGLOBIN 36.9 PG (27.0-31.0); MEAN CORPUSCULAR HGB CONC 34.4 % (33.0-36.5); MEAN CORPUSCULAR VOLUME 107.2 FL (78-98); MEAN PLATELET VOLUME 6.3 FL (7.4-10.4); MONOCYTES # (AUTO) 0.5 X10'3 (0-0.9); MONOCYTES % (AUTO) 14.6 % (2-12); NEUTROPHILS # (AUTO) 1.9 X10'3 (1.8-7.7); PLATELET COUNT 299 X10'3 (140-440); RED CELL DISTRIBUTION WIDTH 15.3 % (11.5-14.5); WHITE BLOOD COUNT 3.6 X10'3 (4.5-11.0)
[2017-12-21 05:16] LABS: PARTIAL THROMBOPLASTIN TIME 23 SECONDS (22-32); PROTHROMBIN TIME 10.5 SECONDS (9.0-12.0)
[2017-12-21 05:31] LABS: ALANINE AMINOTRANSFERASE 32 U/L (12-78); ALBUMIN 2.9 G/DL (3.4-5.0); ALKALINE PHOSPHATASE 83 IU/L (46-116); ANION GAP 8 (8-16); ASPARTATE AMINO TRANSFERASE 42 U/L (10-37); BILIRUBIN,TOTAL 0.3 MG/DL (0.1-1.0); BLOOD UREA NITROGEN 6 MG/DL (7-18); BUN/CREATININE RATIO 6.4 (6.6-38.0); CALCIUM 8.7 MG/DL (8.5-10.1); CHLORIDE 107 MMOL/L (99-107); CREATININE 0.94 MG/DL (0.40-0.90); GLUCOSE 109 MG/DL (70-104); MAGNESIUM 2.1 MG/DL (1.5-2.4); POTASSIUM 3.9 MMOL/L (3.5-5.1); SODIUM 144 MMOL/L (135-145); TOTAL CARBON DIOXIDE 28.8 MMOL/L (24-32); TOTAL PROTEIN 5.7 G/DL (6.4-8.2); eGFR 60 ML/MIN
[2017-12-21] MEDS: K and/or MAG REPLACEMENT MC SCH (07:14)
[2017-12-21] MEDS: multivitamins, therapeutics tablet PO SCH (07:15)
[2017-12-21] MEDS: aspirin 81mg tab.chew PO SCH (07:15)
[2017-12-21] MEDS: lisinopril 20mg tablet PO SCH (07:24)
[2017-12-21] MEDS: pantoprazole 40 MG vial IV SCH ×2 (07:24→20:31)
[2017-12-21] MEDS: phenytoin sod ER 100mg capsule PO SCH ×3 (07:24→20:30)
[2017-12-21] MEDS: atenolol 50mg tablet PO SCH (07:24)
[2017-12-21] MEDS ORDERED: BUPIVAcaine/PF 2.5 mg/ml (0.25%) 30ml vial ONE (12:00)
[2017-12-21] MEDS ORDERED: ceFAZolin 1000mg inj ONE (12:00)
[2017-12-21] MEDS ORDERED: fentaNYL /PF 50mcg/ml 5ml ampule ONE (12:26)
[2017-12-21] MEDS ORDERED: midazolam 2 mg/2 ml injection ONE (12:27)
[2017-12-21] MEDS ORDERED: rocuronium 10mg/ml inj IV ONE (12:29)
[2017-12-21] MEDS ORDERED: propofol inj 20 ML IV ONE (12:29)
[2017-12-21] MEDS ORDERED: LIDOcaine 2% (20mg/ml) 5ml vial ONE (12:29)
[2017-12-21] MEDS ORDERED: sevoflurane 250ml liquid IH ONE (12:30)
[2017-12-21] MEDS ORDERED: ceFOXitin 1000 MG inj ONE ×2 (12:54)
[2017-12-21] MEDS ORDERED: ondansetron/PF 4mg/2ml inj ONE (12:55)
[2017-12-21] MEDS ORDERED: glycopyrrolate 0.2mg/ml inj ONE (13:00)
[2017-12-21] MEDS ORDERED: neostigmine methylsulfate 1 MG/ML 10ml vial ONE (13:00)
[2017-12-21] MEDS ORDERED: ringers solution, lacted 1,000 ML IV ONE (13:17)
[2017-12-21] MEDS ORDERED: hydrALAZINE 20mg/ml inj. IV PRN (13:20)
[2017-12-21] MEDS ORDERED: meperidine/PF 50mg/ml syringe IV ONE (13:20)
[2017-12-21] MEDS ORDERED: ondansetron/PF 4mg/2ml inj IV PRN (13:20)
[2017-12-21] MEDS ORDERED: morphine 4 MG/ML inj SYRINge IV PRN ×2 (13:20)
[2017-12-21] MEDS ORDERED: meperidine/PF 50mg/ml syringe IV PRN (13:20)
[2017-12-21] MEDS: meperidine/PF 50mg/ml syringe IV PRN ×5 (13:24→15:13)
[2017-12-21] MEDS: labetalol 20mg/4ml (5mg/ml) syringe IV PRN ×2 (13:24→13:33)
[2017-12-21] MEDS ORDERED: morphine 4 MG/ML inj SYRINge IV ONE ×3 (17:25→22:15)
[2017-12-21] MEDS: insulin glargine (Lantus) pen - multi-dose SQ SCH (21:00)
[2017-12-22] VITALS (9 sets, daily range): BP systolic 96–150; BP diastolic 50–73
[2017-12-22] MEDS: oxyCODONE/APAP 5-325mg tablet PO PRN ×3 (00:44→08:57)
[2017-12-22] MEDS: LORazepam 1 MG tablet PO PRN ×5 (00:45→22:49)
[2017-12-22] MEDS: normal saline 1000ml 1,000 ML IV SCH ×3 (03:09→23:38)
[2017-12-22 05:25] LABS: BASOPHILS % (AUTO) 0.3 % (0-1); EOSINOPHILS # (AUTO) 0.1 X10'3 (0-0.9); EOSINOPHILS % (AUTO) 1.7 % (0-6); HEMATOCRIT 22.6 % (35.0-45.0); HEMOGLOBIN 7.7 g/dl (12.0-16.0); LYMPHOCYTES # (AUTO) 0.8 X10'3 (1.1-4.8); LYMPHOCYTES % (AUTO) 13.1 % (21-51); MEAN CORPUSCULAR HEMOGLOBIN 36.4 PG (27.0-31.0); MEAN CORPUSCULAR HGB CONC 33.9 % (33.0-36.5); MEAN CORPUSCULAR VOLUME 107.2 FL (78-98); MEAN PLATELET VOLUME 6.7 FL (7.4-10.4); MONOCYTES # (AUTO) 0.4 X10'3 (0-0.9); MONOCYTES % (AUTO) 7.7 % (2-12); NEUTROPHILS # (AUTO) 4.5 X10'3 (1.8-7.7); NEUTROPHILS % (AUTO) 77.2 % (42-75); PLATELET COUNT 251 X10'3 (140-440); RED BLOOD COUNT 2.11 X10'6 (4.20-5.60); RED CELL DISTRIBUTION WIDTH 15.1 % (11.5-14.5); WHITE BLOOD COUNT 5.8 X10'3 (4.5-11.0)
[2017-12-22 06:01] LABS: ALANINE AMINOTRANSFERASE 44 U/L (12-78); ALBUMIN 2.5 G/DL (3.4-5.0); ALBUMIN/GLOBULIN RATIO 0.9 (1.1-1.5); ALKALINE PHOSPHATASE 82 IU/L (46-116); ANION GAP 9 (8-16); ASPARTATE AMINO TRANSFERASE 91 U/L (10-37); BILIRUBIN,TOTAL 0.5 MG/DL (0.1-1.0); BLOOD UREA NITROGEN 5 MG/DL (7-18); CALCIUM 7.9 MG/DL (8.5-10.1); CHLORIDE 105 MMOL/L (99-107); CREATININE 1.01 MG/DL (0.40-0.90); GLUCOSE 121 MG/DL (70-104); MAGNESIUM 1.3 MG/DL (1.5-2.4); POTASSIUM 3.9 MMOL/L (3.5-5.1); SODIUM 141 MMOL/L (135-145); TOTAL CARBON DIOXIDE 27.3 MMOL/L (24-32); TOTAL PROTEIN 5.2 G/DL (6.4-8.2); eGFR 55 ML/MIN
[2017-12-22] MEDS: aspirin 81mg tab.chew PO SCH (08:00)
[2017-12-22] MEDS: lisinopril 20mg tablet PO SCH (08:24)
[2017-12-22] MEDS: multivitamins, therapeutics tablet PO SCH (08:24)
[2017-12-22] MEDS: atenolol 50mg tablet PO SCH (08:25)
[2017-12-22] MEDS: phenytoin sod ER 100mg capsule PO SCH ×3 (08:25→21:16)
[2017-12-22] MEDS: pantoprazole 40 MG vial IV SCH ×2 (08:28→19:29)
[2017-12-22] MEDS: magnesium Cl slow-release 64mg tablet PO PRN ×2 (08:31→22:49)
[2017-12-22] MEDS: K and/or MAG REPLACEMENT MC SCH (08:34)
[2017-12-22] MEDS ORDERED: oxyCODONE/APAP 5-325mg tablet PO PRN (10:35)
[2017-12-22] MEDS ORDERED: oxyCODONE/APAP 5-325mg tablet PO ONE (10:35)
[2017-12-22] MEDS ORDERED: hydrOXYzine 25 MG tablet PO ONE (13:25)
[2017-12-22] MEDS ORDERED: thiamine 100mg tablet PO SCH (13:26)
[2017-12-22] MEDS: oxyCODONE IR 5mg (immed. release) tablet PO PRN ×3 (14:39→22:50)
[2017-12-22] MEDS: diphenhydrAMINE 50 mg/ml inj IV PRN ×2 (16:40→22:50)
[2017-12-22] MEDS ORDERED: temazepam 15mg capsule PO PRN (20:30)
[2017-12-22] MEDS: insulin glargine (Lantus) pen - multi-dose SQ SCH (20:31)
[2017-12-23] VITALS: BP 156/71
[2017-12-23] MEDS: LORazepam 1 MG tablet PO PRN ×2 (02:59→07:48)
[2017-12-23] MEDS: oxyCODONE IR 5mg (immed. release) tablet PO PRN ×2 (02:59→07:48)
[2017-12-23] MEDS: diphenhydrAMINE 50 mg/ml inj IV PRN (05:23)
[2017-12-23 05:32] LABS: BASOPHILS % (AUTO) 0.5 % (0-1); EOSINOPHILS # (AUTO) 0.2 X10'3 (0-0.9); EOSINOPHILS % (AUTO) 3.2 % (0-6); HEMATOCRIT 23.9 % (35.0-45.0); HEMOGLOBIN 8.3 g/dl (12.0-16.0); LYMPHOCYTES # (AUTO) 0.9 X10'3 (1.1-4.8); LYMPHOCYTES % (AUTO) 17.7 % (21-51); MEAN CORPUSCULAR HEMOGLOBIN 35.9 PG (27.0-31.0); MEAN CORPUSCULAR HGB CONC 34.7 % (33.0-36.5); MEAN CORPUSCULAR VOLUME 103.5 FL (78-98); MEAN PLATELET VOLUME 6.7 FL (7.4-10.4); MONOCYTES # (AUTO) 0.5 X10'3 (0-0.9); NEUTROPHILS # (AUTO) 3.5 X10'3 (1.8-7.7); NEUTROPHILS % (AUTO) 69.6 % (42-75); PLATELET COUNT 228 X10'3 (140-440); RED CELL DISTRIBUTION WIDTH 17.5 % (11.5-14.5); WHITE BLOOD COUNT 5.1 X10'3 (4.5-11.0)
[2017-12-23 05:49] LABS: ALANINE AMINOTRANSFERASE 41 U/L (12-78); ALBUMIN 2.5 G/DL (3.4-5.0); ALBUMIN/GLOBULIN RATIO 0.9 (1.1-1.5); ALKALINE PHOSPHATASE 78 IU/L (46-116); ANION GAP 8 (8-16); ASPARTATE AMINO TRANSFERASE 60 U/L (10-37); BILIRUBIN,TOTAL 0.6 MG/DL (0.1-1.0); BLOOD UREA NITROGEN 7 MG/DL (7-18); BUN/CREATININE RATIO 8.6 (6.6-38.0); CALCIUM 8.3 MG/DL (8.5-10.1); CHLORIDE 107 MMOL/L (99-107); CREATININE 0.81 MG/DL (0.40-0.90); GLUCOSE 104 MG/DL (70-104); MAGNESIUM 1.1 MG/DL (1.5-2.4); POTASSIUM 3.6 MMOL/L (3.5-5.1); SODIUM 142 MMOL/L (135-145); TOTAL CARBON DIOXIDE 27.5 MMOL/L (24-32); TOTAL PROTEIN 5.4 G/DL (6.4-8.2); eGFR 71 ML/MIN
[2017-12-23] MEDS: K and/or MAG REPLACEMENT MC SCH (06:35)
[2017-12-23 07:00] VITALS: BP 162/86
[2017-12-23] MEDS: phenytoin sod ER 100mg capsule PO SCH (07:47)
[2017-12-23] MEDS: multivitamins, therapeutics tablet PO SCH (07:48)
[2017-12-23] MEDS: lisinopril 20mg tablet PO SCH (07:49)
[2017-12-23] MEDS: atenolol 50mg tablet PO SCH (07:49)
[2017-12-23] MEDS: magnesium Cl slow-release 64mg tablet PO PRN (07:49)
[2017-12-23] MEDS: pantoprazole 40 MG vial IV SCH (07:52)
[2017-12-23] MEDS: aspirin 81mg tab.chew PO SCH (07:55)
[2017-12-23] MEDS ORDERED: hydrOXYzine 25 MG tablet PO PRN (09:00)
[2017-12-23] MEDS ORDERED: MULT-1179 PO (11:16)
[2017-12-23] MEDS ORDERED: THI100T PO (11:16)
[2017-12-23] MEDS ORDERED: ONDA4TAB12 PO (11:16)
== END 2017-12-23 12:34 | disposition home or self-care (01) | DRG 417 ==
LOC: ER 14:19 → ED HOLD 21:43 → SUR 3N 12-11 11:09 → PACU 12-21 11:30 → SUR 3N 12-21 15:27
PROVIDERS: ADMIT Family Medicine; ATTEND Family Medicine
PROC: BW211ZZ Computerized Tomography (CT Scan) of Abdomen and Pelvis using Low Osmolar Contrast (ICD-10-PCS; 2017-12-10)
PROC: CF241ZZ Tomographic (Tomo) Nuclear Medicine Imaging of Gallbladder using Technetium 99m (Tc-99m) (ICD-10-PCS; 2017-12-20)
PROC: 0FT44ZZ Resection of Gallbladder, Percutaneous Endoscopic Approach (ICD-10-PCS; principal; 2017-12-21 12:30)
PROC: 30233N1 Transfusion of Nonautologous Red Blood Cells into Peripheral Vein, Percutaneous Approach (ICD-10-PCS; 2017-12-22)
DX: K80.20 Calculus of gallbladder without cholecystitis without obstruction (principal); K85.90 Acute pancreatitis without necrosis or infection, unspecified; D61.818 Other pancytopenia; I95.9 Hypotension, unspecified; E11.42 Type 2 diabetes mellitus with diabetic polyneuropathy; E87.1 Hypo-osmolality and hyponatremia; R45.851 Suicidal ideations; F10.239 Alcohol dependence with withdrawal, unspecified; W18.30XA Fall on same level, unspecified, initial encounter; K74.60 Unspecified cirrhosis of liver; D53.9 Nutritional anemia, unspecified; M19.90 Unspecified osteoarthritis, unspecified site; F41.0 Panic disorder [episodic paroxysmal anxiety]; G40.909 Epilepsy, unspecified, not intractable, without status epilepticus; I10 Essential (primary) hypertension; Y90.0 Blood alcohol level of less than 20 mg/100 ml; Z79.82 Long term (current) use of aspirin; Z79.899 Other long term (current) drug therapy; Z90.710 Acquired absence of both cervix and uterus; Z91.81 History of falling; Z88.8 Allergy status to other drugs, medicaments and biological substances; Z84.89 Family history of other specified conditions; Y92.89 Other specified places as the place of occurrence of the external cause
CPT/HCPCS: 36415; 71045; 74018; 74177; 76700; 78226; 80048; 80053; 80061; 80185; 80305; 80320; 81001; 81025; 82550; 82948; 83036; 83690; 83735; 83880; 84100; 84132; 84484; 85025; 85610; 85730; 86885; 86900; 86901; 86920; 87070; 87088; 88304; 93005; 96374; 96375; 96376; 99285; A6257; A6258; A6449; A7000; A9537; C9113; J0690; J0694; J1170; J1200; J1815; J2001; J2060; J2175; J2250; J2270; J2405; J2704; J2710; J2805; J2930; J3010; J3411; J3475; J3490; J7030; J7040; J7060; J7120; P9016; Q0177; Q9967